=== PATIENT | female | born 1985 | race Caucasian/White ===

== ENCOUNTER 2016-06-09 07:59 | Inpatient (IN) | payer BC ==
[~2016-06-09] VITALS: Ht 162.6 cm; Wt 78.0 kg
[2016-06-09] VITALS (54 sets, daily range): BP systolic 92–143; BP diastolic 16–95; PULSE 59–138; RESP 17–19; TEMP 98.1–99
[2016-06-09] MEDS ORDERED: LIDOCAINE HCL 1% 50 ML VIAL I-DERMAL PRN (08:15)
[2016-06-09] MEDS ORDERED: LIDOCAINE HCL 1% 50 ML VIAL INFIL PRN (08:15)
[2016-06-09] MEDS ORDERED: MINERAL OIL 10 ML VIAL TOPICAL PRN (08:15)
[2016-06-09] MEDS ORDERED: CITRIC ACID-SODIUM CITRATE LIQ 30 ML UDC PO SCH (08:15)
--- NOTE | 2016-06-09 08:22 | HHI.HP ---
HPI Chief Complaint 40 weeks for labor induction Date Seen: Jun 09, 2016 Time Seen: 08:30 Travel History International Travel<30 Days: No Contact w/Intl Traveler<30Days: No Known Affected Area: No History of Present Illness HPI 40 weeks for labor induction Para: 0 : 1 Last Menstrual Period: Jun 09, 2016 History Past Medical History Narrative Medical none Medical History: Denies Significant Hx Obstetric History Obstetric History niurka Past Surgical History Narrative Surgical knee ACL Family History Family History: Negative Social History Alcohol Use: No Tobacco Use: No Substance Abuse: No Allergies-Medications (Allergen,Severity, Reaction): Uncoded Allergies: NKA (Allergy, Unknown, 12/21/02) Review of Systems Except as stated in HPI: all other systems reviewed are Neg Physical Exam Narrative GENERAL: Well-nourished, well-developed patient. SKIN: Warm and dry. HEAD: Normocephalic and atraumatic. EYES: No scleral icterus. No injection or drainage. ENT: No nasal drainage noted. Mucous membranes pink. Airway patent. NECK: Supple, trachea midline. No JVD. CARDIOVASCULAR: Regular rate and rhythm without murmurs, gallops, or rubs. RESPIRATORY: Breath sounds equal bilaterally. No accessory muscle use. BREASTS: Bilateral exam showed no masses , no retractions, no nipple discharge. ABDOMEN/GI: Abdomen soft, non-tender, bowel sounds present, no rebound, no guarding Gravid to 40 weeks size Fundal Height: [-] GENITOURINARY: External Genitalia: intact and normal in appearance BUS glands: [-] Cervix: [-] Dilatation: 2 Effacement: 70 Station: -2 Presentation: [-] Membranes: [intact or ruptured] Uterine Contractions: [-] FHT's: Category: 1 Baseline: [-] Reactive: [-] Variability: [-] Decels: [-] EXTREMITIES: No cyanosis or edema. BACK: Nontender without obvious deformity. No CVA tenderness. NEUROLOGICAL: Awake and alert. Motor and sensory grossly within normal limits. Five out of 5 muscle strength in all muscle groups. Normal speech. Data Data Vital Signs Reviewed: Yes Orders Admit To Inpatient (06/09/16 ) Code Status (06/09/16 08:15) Vital Signs (Adult) .Per protocol (06/09/16 08:15) ^ Heart (06/09/16 08:15) ^ Amnioinfusion (06/09/16 08:15) Urinary Catheter Management .ONCE (06/09/16 08:15) Lactated Ringer's 1000 Ml Inj (Lr 1000 M (06/09/16 08:15) Lactated Ringer's 1000 Ml Inj (Lr 1000 M (06/09/16 08:15) Sodium Chlorid 0.9% 500 Ml Inj (Ns 500 M (06/09/16 08:15) Sodium Chlor 0.9% 1000 Ml Inj (Ns 1000 M (06/09/16 08:35) Lidocaine 1% Inj (50 Ml) (Xylocaine 1% I (06/09/16 08:15) Citric Acid-Sodium Citrate Liq (Bicitra (06/09/16 08:15) Fentanyl Inj (Fentanyl Inj) (06/09/16 08:15) Fentanyl Inj (Fentanyl Inj) (06/09/16 08:15) Complete Blood Count With Diff (06/09/16 08:15) Hold Clot (06/09/16 08:15) Abo/Rh Blood Type (06/09/16 08:15) Urinalysis - C+S If Indicated (06/09/16 08:15) Resp Oxygen Non Rebreathe Mask (06/09/16 ) ^ Epidural / Intrathecal Infus (06/09/16 08:15) Oxytocin 30 Units-500ml Premix (Pitocin (06/09/16 08:15) Lidocaine 1% Inj (50 Ml) (Xylocaine 1% I (06/09/16 08:15) Light Mineral Oil (Muri-Lube Oil) (06/09/16 08:15) Inpatient Certification (06/09/16 ) Specimen To Be Collected PRN (06/09/16 08:15) ^ Non Stress Test (06/09/16 08:16) Response To Medication .Post New Med Administration, Reaction (06/09/16 08:16) ^ Discontinue Medication (06/09/16 08:16) Oxytocin 30 Units-500ml Premix (Pitocin (06/09/16 08:30) Assessment/Plan Problem List: (1) 40 weeks gestation of Assessment and Plan induction of labor patient aware of process Cristofer Zapata MD Jun 09, 2016 08:22
[2016-06-09] MEDS ORDERED: OXYTOCIN 30 UNITS-500ML PREMIX 500 ML IV SCH (08:30)
[2016-06-09] MEDS ORDERED: LACTATED RINGER'S 1000 ML INJ 1,000 ML IV PRN (09:00)
[2016-06-09] MEDS ORDERED: OXYTOCIN 30 UNITS-500ML PREMIX 500 ML IV ONE (09:00)
[2016-06-09] MEDS ORDERED: SODIUM CHLOR 0.9% 1000 ML INJ 1,000 ML IV PRN (09:00)
[2016-06-09] MEDS ORDERED: SODIUM CHLORID 0.9% 500 ML INJ 500 ML IV PRN (09:00)
[2016-06-09 09:04] LABS: BASOPHIL % 0.4 % (0.0-2.0); EOSINOPHIL % 0.4 % (0.0-4.0); HEMATOCRIT 42.2 % (35.0-46.0); HEMO FLAGS DIFF FINAL; LYMPHOCYTE # 1.5 TH/MM3 (1.0-4.8); MEAN CELL VOLUME 90.2 FL (80.0-100.0); MEAN CORPUSCULAR HEMOGLOBIN 30.3 PG (27.0-34.0); MEAN CORPUSCULAR HGB CONC 33.6 % (32.0-36.0); MONO % 8.1 % (0.0-8.0); NEUT % 73.1 % (16.0-70.0); PLATELET COUNT 246 TH/MM3 (150-450); RED BLOOD COUNT 4.68 MIL/MM3 (4.00-5.30); RED CELL DISTRIBUTION WIDTH 13.4 % (11.6-17.2); WHITE BLOOD COUNT 8.2 TH/MM3 (4.0-11.0)
[2016-06-09] MEDS: LACTATED RINGER'S 1000 ML INJ 1,000 ML IV SCH ×3 (09:20→18:41)
[2016-06-09 10:11] LABS: BACTERIA, URINE OCC /hpf; BLOOD, URINE NEG (NEG); COMMENT (UR) CULTURE INDICATED; CULTURE IF INDICATED CULTURE INDICATED; GLUCOSE,URINE NEG (NEG); KETONE, URINE NEG (NEG); NITRITE,URINE NEG (NEG); PH, URINE 7.5 (5.0-8.5); SQUAMOUS EPITHELIAL CELL URINE 6 /hpf (0-5); URINE COLOR LIGHT-YELLOW (YELLW/STRAW)
[2016-06-09] MEDS ORDERED: PREN29TA PO (11:20)
[2016-06-09] MEDS ORDERED: fentaNYL 2MCG-BUPIV 0.125% INJ 100 ML ONE (15:03)
[2016-06-09] MEDS ORDERED: DIPHTH/TETANUS/ACEL PERTUSSIS (BOOSTER) 0.5 ML VIAL/PFS IM ONE (16:00)
[2016-06-09] MEDS ORDERED: MEASLES, MUMPS, RUBELLA VACCINE 0.5 ML VIAL SQ ONE (16:00)
[2016-06-09] MEDS ORDERED: ePHEDrine/NS 25 MG/5 ML SYR IV PRN (16:45)
[2016-06-09] MEDS ORDERED: DO NOT ADMINISTER ANTICOAGULANTS XX PRN (16:45)
[2016-06-09] MEDS ORDERED: fentaNYL 2MCG-BUPIV 0.125% 100 ML EPIDURAL SCH (16:45)
[2016-06-09] MEDS ORDERED: NO SYSTEM NARCOTICS XX PRN (16:45)
[2016-06-09] MEDS ORDERED: BUPIVACAINE HCL PF 0.25% 10 ML VIAL ONE (18:32)
--- NOTE | 2016-06-09 21:40 | PD.OB.DELI ---
Delivery Date: Jun 09, 2016 Anesthesia: Epidural Episiotomy: Right mediolateral Vaginal Delivery: Normal, Spontaneous Presentation: Occiput anterior Nuchal Cord: None Delayed cord clamping (45 sec): Yes : Male, Single One Minute : 9 Five Minute : 9 Weight: 8# 3oz Care: Spontaneous crying Placenta: Spontaneous delivery, Intact, 3 vessel cord Laceration: Vaginal laceration, Perineal laceration, 3 deg, Involving anal sphincter Repair: Chromic running (2nd ), Vicryl interrupted (sphincter repair) Cristofer Zapata MD Jun 09, 2016 21:40
[2016-06-09] MEDS ORDERED: ONDANSETRON ODT 4 MG TAB PO PRN (21:45)
[2016-06-09] MEDS ORDERED: ZOLPIDEM TARTRATE 5 MG TAB PO PRN (21:45)
[2016-06-09] MEDS ORDERED: ALUMINUM/MAGNESIUM/SIMETH 30 ML CUP PO PRN (21:45)
[2016-06-09] MEDS ORDERED: SODIUM CHLORIDE 0.9% FLUSH 5 ML FLUSH IV PRN (21:45)
[2016-06-10] MEDS: WITCH HAZEL 50%/GLYCERIN 12.5% 40 PAD JAR TOPICAL PRN ×3 (01:12→22:02)
[2016-06-10] MEDS: BENZOCAINE 20% TOPICAL SPRAY 60 ML CAN TOPICAL PRN ×2 (01:13→22:01)
[2016-06-10] MEDS: IBUPROFEN 600 MG TAB PO PRN ×4 (01:13→22:02)
[2016-06-10] MEDS: DOCUSATE SODIUM 50 MG/SENNA 8.6 MG TAB PO PRN ×2 (07:50→19:46)
[2016-06-10] MEDS: ACETAMINOPHEN 325 MG TAB PO PRN ×4 (07:52→19:46)
--- NOTE | 2016-06-10 08:25 | HHI.OB ---
Subjective Post Day: 1 Remarks doing well Objective Vitals/I&O Vital Signs Date Time Temp Pulse Resp B/P Pulse Ox O2 Delivery O2 Flow Rate FiO2 06/09/16 20:15 63 105/66 06/09/16 20:00 70 93/52 06/09/16 19:57 18 06/09/16 19:46 76 94/57 06/09/16 19:31 18 06/09/16 19:30 70 103/65 06/09/16 19:15 67 110/67 06/09/16 19:00 77 107/60 06/09/16 18:56 98.6 18 06/09/16 18:45 19 06/09/16 18:45 73 102/61 06/09/16 18:43 66 103/60 06/09/16 18:30 68 116/73 06/09/16 18:17 99.0 06/09/16 18:15 64 126/72 06/09/16 18:15 18 06/09/16 18:04 88 125/73 06/09/16 18:02 138 110/16 06/09/16 17:46 67 129/79 06/09/16 17:45 18 06/09/16 17:30 70 115/95 06/09/16 17:15 19 06/09/16 17:05 68 122/76 06/09/16 17:00 65 118/72 06/09/16 16:40 17 06/09/16 16:40 64 111/72 06/09/16 16:35 66 109/62 06/09/16 16:30 63 110/70 06/09/16 16:27 63 103/63 06/09/16 16:26 61 92/49 06/09/16 16:21 73 100/75 06/09/16 16:15 18 06/09/16 16:15 62 125/70 06/09/16 16:11 64 119/70 06/09/16 16:05 61 115/74 06/09/16 16:00 60 118/74 06/09/16 15:55 67 118/74 06/09/16 15:50 69 122/81 06/09/16 15:47 64 121/78 06/09/16 15:45 62 126/77 06/09/16 15:45 19 06/09/16 15:40 68 129/74 06/09/16 15:37 70 143/75 06/09/16 15:35 72 06/09/16 15:32 70 130/84 06/09/16 15:15 98.1 19 06/09/16 13:45 66 125/78 06/09/16 13:44 18 06/09/16 12:45 18 06/09/16 12:43 65 107/67 06/09/16 11:45 17 06/09/16 11:34 67 118/67 06/09/16 10:15 17 06/09/16 10:00 71 111/77 06/09/16 09:20 70 06/09/16 09:15 76 06/09/16 09:10 71 06/09/16 08:30 17 06/09/16 08:30 98.3 Objective Remarks GENERAL: Well-nourished, well-developed patient. . ABDOMEN/GI: Abdomen soft, non-tender. Fundus: Firm, non-tender at umbilicus. GENITOURINARY: Light to moderate bleeding. EXTREMITIES: No cyanosis or edema, non-tender, without signs of DVT. Medications and IVs Current Medications Medications (Trade) Dose Ordered Sig/Colton Route Start Time Stop Time Status Last Admin (NS Flush) 2 ml BID IV 06/10/16 09:00 (NS Flush) 2 ml UNSCH PRN IV 06/09/16 21:45 (Tylenol) 650 mg Q4H PRN PO 06/09/16 21:45 06/10/16 07:52 (Motrin) 600 mg Q6H PRN PO 06/09/16 21:45 06/10/16 07:52 (Americaine 20% Top Spr) 1 spray Q4H PRN TOPICAL 06/09/16 21:45 06/10/16 01:13 (Tucks Pads) 1 applic QID PRN TOPICAL 06/09/16 21:45 06/10/16 01:12 (Whit-Colace) 2 tab Q12H PRN PO 06/09/16 21:45 06/10/16 07:50 (Ambien) 5 mg HS PRN PO 06/09/16 21:45 (Mag-Al Plus Susp Liq) 15 ml Q8H PRN PO 06/09/16 21:45 (Zofran Odt) 4 mg Q6H PRN PO 06/09/16 21:45 Assessment/Plan Problem List: (1) 40 weeks gestation of (2) Spontaneous vaginal delivery Assessment and Plan Discharge Planning [facility] Cristofer Zapata MD Jun 10, 2016 08:25
--- NOTE | 2016-06-10 08:27 | HHI.DCPOC ---
Discharge Care Plan Diagnosis: (1) Spontaneous vaginal delivery Report Symptoms to Your Doctor -Temperate above 100.5 degrees -Redness, of incision or excessive or foul smelling drainage -Unusual pain or calf pain -Increased vaginal bleeding -Painful or difficulty urinating -Feelings of extreme sadness or anxiety after 2 weeks Goals to Promote Your Health * To prevent worsening of your condition and complications * To maintain your health at the optimal level Directions to Meet Your Goals Take your medications as prescribed Follow your dietary instruction Follow activity as directed Ensure plenty of rest for recovery Drink fluids for hydration Keep your appointments as scheduled Take your immunizations and boosters as scheduled If your symptoms worsen call your PCP, if no PCP go to Urgent Care Center or Emergency Room Smoking is Dangerous to Your Health. Avoid second hand smoke Call the 24-hour crisis hotline for domestic abuse at Cristofer Zapata MD Jun 10, 2016 08:27
[2016-06-10] MEDS ORDERED: SODIUM CHLORIDE 0.9% FLUSH 5 ML FLUSH IV SCH (09:00)
[2016-06-10] MEDS ORDERED: INFLUENZA VIRUS VACCINE (QUADRIVALENT) 0.5 ML SYR IM ONE ×2 (10:00→15:15)
[2016-06-11] MEDS: IBUPROFEN 600 MG TAB PO PRN ×2 (05:08→11:25)
[2016-06-11] MEDS: ACETAMINOPHEN 325 MG TAB PO PRN ×3 (05:09→13:34)
[2016-06-11 08:00] VITALS: BP 101/69; PULSE 66; RESP 16; TEMP 97.6
[2016-06-11] MEDS: BENZOCAINE 20% TOPICAL SPRAY 60 ML CAN TOPICAL PRN (11:24)
[2016-06-11] MEDS: WITCH HAZEL 50%/GLYCERIN 12.5% 40 PAD JAR TOPICAL PRN (11:25)
[2016-06-11] MEDS ORDERED: PERC5TAB12 PO (12:34)
--- NOTE | 2016-06-11 12:36 | HHI.DS ---
Admission Date Jun 09, 2016 at 07:59 Discharge Date: Jun 11, 2016 Admitting Diagnosis Diagnosis: (1) Spontaneous vaginal delivery Diagnosis: Principal Delivery Date: Jun 09, 2016 Vaginal Delivery: Normal, Spontaneous : Male, Single Brief History 40 weeks for labor induction Hospital Course dc home PPD #2 Pt Condition on Discharge: Good Discharge Disposition: Discharge Home Discharge Instructions Diet Instructions: As Tolerated, No Restrictions Activities You Can Perform: Pelvic Rest Follow up Referrals: ARTIFICIAL INSEMINATION TECHNICIAN - 2 Weeks @ [facility] with Cristofer Zapata MD New Medications: Oxycodone-Acetaminophen (Percocet) 5-325 mg Tab 1-2 TAB PO Q4H PRN PAIN #20 Ref 0 TAB Continued Medications: Vit-Iron Carbonyl ( Plus Iron 29-1 mg) 1 Tab Tab 1 TAB PO DAILY Nutritional Supplement #30 Ref 0 TAB Cristofer Zapata MD Jun 11, 2016 12:36
--- NOTE | 2016-06-11 12:37 | HHI.OB ---
Subjective Post Day: 2 Remarks doing Well BM today and ready for dc home Objective Vitals/I&O Vital Signs Date Time Temp Pulse Resp B/P Pulse Ox O2 Delivery O2 Flow Rate FiO2 06/11/16 08:00 97.6 66 16 101/69 Objective Remarks GENERAL: Well-nourished, well-developed patient. . ABDOMEN/GI: Abdomen soft, non-tender. Fundus: Firm, non-tender at umbilicus. GENITOURINARY: Light to moderate bleeding. EXTREMITIES: No cyanosis or edema, non-tender, without signs of DVT. Medications and IVs Current Medications Medications (Trade) Dose Ordered Sig/Colton Route Start Time Stop Time Status Last Admin (NS Flush) 2 ml BID IV 06/10/16 09:00 (NS Flush) 2 ml UNSCH PRN IV 06/09/16 21:45 (Tylenol) 650 mg Q4H PRN PO 06/09/16 21:45 06/11/16 09:18 (Motrin) 600 mg Q6H PRN PO 06/09/16 21:45 06/11/16 11:25 (Americaine 20% Top Spr) 1 spray Q4H PRN TOPICAL 06/09/16 21:45 06/11/16 11:24 (Tucks Pads) 1 applic QID PRN TOPICAL 06/09/16 21:45 06/11/16 11:25 (Whit-Colace) 2 tab Q12H PRN PO 06/09/16 21:45 06/10/16 19:46 (Ambien) 5 mg HS PRN PO 06/09/16 21:45 (Mag-Al Plus Susp Liq) 15 ml Q8H PRN PO 06/09/16 21:45 (Zofran Odt) 4 mg Q6H PRN PO 06/09/16 21:45 Assessment/Plan Problem List: (1) 40 weeks gestation of (2) Spontaneous vaginal delivery Assessment and Plan Discharge Planning dc home Cristofer Zapata MD Jun 11, 2016 12:37
[2016-06-11] MEDS: DOCUSATE SODIUM 50 MG/SENNA 8.6 MG TAB PO PRN (13:34)
== END 2016-06-11 15:17 | disposition home or self-care (01) | DRG 775 ==
LOC: H2EA 07:59 → H1EA 06-10 00:27
PROVIDERS: ADMIT Obstetrics & Gynecology; ATTEND Obstetrics & Gynecology
PROC: 0DQR0ZZ Repair Anal Sphincter, Open Approach (ICD-10-PCS; principal; 2016-06-09)
PROC: 10E0XZZ Delivery of Products of Conception, External Approach (ICD-10-PCS; 2016-06-09)
PROC: 0W8NXZZ Division of Female Perineum, External Approach (ICD-10-PCS; 2016-06-09)
PROC: 00HU33Z Insertion of Infusion Device into Spinal Canal, Percutaneous Approach (ICD-10-PCS; 2016-06-09)
PROC: 3E0R3CZ (ICD-10-PCS; 2016-06-09)
DX: O48.0 Post-term pregnancy (principal); O70.20 Third degree perineal laceration during delivery, unspecified; Z37.0 Single live birth; Z3A.40 40 weeks gestation of pregnancy; Z23 Encounter for immunization
CPT/HCPCS: 59025; 81001; 85025; 86900; 86901; 87086; 90686; 90715; J2590; J7120; Q2038

== ENCOUNTER 2018-03-28 07:46 | Inpatient (IN) ==
[2018-03-28] MEDS ORDERED: Naloxone Inj 0.4 MG/ML Vial IV.PUSH PRN ×2 (08:03→14:01)
[2018-03-28] MEDS ORDERED: Sodium Chlor 0.9% Inj 500 ML IV.SIG PRN (08:03)
[2018-03-28] MEDS ORDERED: Sod Chloride 0.9% Inj 1,000 ML IV.CONT PRN (08:03)
[2018-03-28] MEDS ORDERED: Oxytocin 30 Units/500ml Premix 30 UNITS/500 ML BAG IV.SIG ONE (08:03)
[2018-03-28] MEDS ORDERED: fentaNYL Citrate Inj 100 MCG/2 ML Ampul IV.PUSH PRN ×2 (08:03)
[2018-03-28] MEDS ORDERED: Oxytocin 30 Units/500ml Premix 30 UNITS/500 ML BAG IV.SIG PRN (08:06)
--- NOTE | 2018-03-28 08:10 | P.HPOB ---
History of Present Illness Service: for induction at 40 weeks Primary Care Physician: No Primary Care Physician Weeks Gestation:: 40 Para: 1 : 2 - Inpatient Certification I certify that the inpatient services were ordered in accordance with Medicare regulations governing the order. This includes certification that hospital inpatient services are reasonable and necessary and in the case of services not specified as inpatient-only under 42 CFR 419.22(n), that they are appropriately provided as inpatient services in accordance to with the 2-midnight benchmark under 43 CFR 412.3(e) Estimated Total Length of Stay (Days): 2 Plans for Post Hospital Care: Home Review of Systems All other systems reviewed negative except as stated in HPI PMFSH - Medical / Surgical Hx Neg / Unobtainable Medical Problems Denied: Yes Surgical History: No Previous Surgery - Social History I have reviewed the patient's Social History: No - Tobacco History Second Hand Smoke Exposure: No Tobacco Use In Past 30 Days: No Smoking Status: Never smoker - Travel History Recent Travel in the [place] Within the Last 8 Weeks: No Recent Travel Out of the Country Within the Last 8 Weeks: No Medications and Allergies Active Medications: Active Medications Citric Acid/Sodium Citrate (Sodium Citrate/Citric Acid Liq) 30 ml PO ENVIRONMENTAL ANALYST [facility]IN[facility] Stop: 04/01/18 08:14 Fentanyl Citrate (Fentanyl Inj) 50 mcg IV.PUSH Q1H PRN PRN Reason: Pain Scale 3 - 5 Fentanyl Citrate (Fentanyl Inj) 100 mcg IV.PUSH Q1H PRN PRN Reason: PAIN SCALE 6 TO 10 Lactated Ringer's (Lr 1000 Ml Inj) 1,000 mls @ 125 mls/hr IV.CONT .Q8H [facility] Lactated Ringer's (Lr 1000 Ml Inj) 1,000 mls @ 3,000 mls/hr IV.SIG UNSCH PRN PRN Reason: compromise or epidural Sodium Chloride (Ns Inj) 500 mls @ 1,000 mls/hr IV.SIG UNSCH PRN PRN Reason: SEE LABEL COMMENTS Sodium Chloride (Ns Inj) 1,000 mls @ 100 mls/hr IV.CONT .Q10H PRN PRN Reason: SEE LABEL COMMENTS Oxytocin (Pitocin 30 Units/Ns 500 Ml Premix) 30 units in 500 mls @ 999 mls/hr IV.SIG BOLUS ONE Stop: 03/28/18 08:33 Oxytocin (Pitocin 30 Units/Ns 500 Ml Premix) 30 units in 500 mls @ 2 mls/hr IV.SIG TITRATE PRN; Protocol PRN Reason: For induction of labor Lidocaine HCl (Xylocaine 1% Inj) 0.1 ml I-DERMAL PRN PRN PRN Reason: For IV start Stop: 03/31/18 08:02 Lidocaine HCl (Xylocaine 1% Inj) 10 ml INFILTRATN PRN PRN PRN Reason: For episiotomy repair Stop: 03/30/18 08:02 Mineral Oil (Muri-Lube Oil) 10 ml TOPICAL PRN PRN PRN Reason: PRN perineal massage Naloxone HCl (Narcan Inj) 0.1 mg IV.PUSH Q2M PRN PRN Reason: for opiate reversal Allergies Allergy/AdvReac Type Severity Reaction Status Date / Time No Known Allergies Allergy Verified 03/28/18 08:00 Home Medications Medication Instructions Recorded Confirmed Type vit,[id number] 1 tab PO DAILY 03/28/18 03/28/18 History [PNV 29-1] Exam Vital signs: Intake & Output 03/27/18 03/28/18 03/28/18 18:59 06:59 18:59 Weight 76.657 kg Other: Weight On Admission 76.657 kg - Constitutional no acute distress - Routine Neck Exam Present: full ROM - Routine Respiratory Exam Present: CTA bilaterally - Routine Cardiovascular Exam Present: RRR - Routine Abdominal Exam Present: soft, normoactive bowel sounds - Routine Skin Exam Present: intact - Routine Neurological Exam Present: oriented X3 (cervix 3 cm dilated) Results - Labs Group B Strep: Negative Caprini VTE Risk Assessment Caprini VTE Risk Assessment: No/Low Risk (score <= 1) Caprini Risk Assessment Model: Point Value = 1 Point Value = 2 Point Value = 3 Point Value = 5 Age 41-60 Minor surgery BMI > 25 kg/m2 Swollen legs Varicose veins or History of unexplained or recurrent spontaneous Oral contraceptives or hormone replacement Sepsis (< 1 month) Serious lung disease, including pneumonia (< 1 month) Abnormal pulmonary function Acute myocardial infarction Congestive heart failure (< 1 month) History of inflammatory bowel disease Medical patient at bed rest Age 61-74 Arthroscopic surgery Major open surgery (> 45 min) Laparoscopic surgery (> 45 min) Malignancy Confined to bed (> 72 hours) Immobilizing plaster cast Central venous access Age >= 75 History of VTE Family history of VTE Factor V Leiden Prothrombin [id number] Lupus anticoagulant Anticardiolipin antibodies Elevated serum homocysteine Heparin-induced thrombocytopenia Other congenital or acquired thrombophilia Stroke (< 1 month) Elective arthroplasty Hip, pelvis, or leg fracture Acute spinal cord injury (< 1 month) Prophylaxis Regimen: Total Risk Factor Score Risk Level Prophylaxis Regimen 0-1 Low Early ambulation 2 Moderate Order ONE of the following: *Sequential Compression Device (SCD) *Heparin 5000 units SQ BID 3-4 Higher Order ONE of the following medications: *Heparin 5000 units SQ TID *Enoxaparin/Lovenox 40 mg SQ daily (WT < 150 kg, CrCl > 30 mL/min) *Enoxaparin/Lovenox 30 mg SQ daily (WT < 150 kg, CrCl > 10-29 mL/min) *Enoxaparin/Lovenox 30 mg SQ BID (WT < 150 kg, CrCl > 30 mL/min) AND/OR *Sequential Compression Device (SCD) 5 or more Highest Order ONE of the following medications: *Heparin 5000 units SQ TID (Preferred with Epidurals) *Enoxaparin/Lovenox 40 mg SQ daily (WT < 150 kg, CrCl > 30 mL/min) *Enoxaparin/Lovenox 30 mg SQ daily (WT < 150 kg, CrCl > 10-29 mL/min) *Enoxaparin/Lovenox 30 mg SQ BID (WT < 150 kg, CrCl > 30 mL/min) AND *Sequential Compression Device (SCD) Assessment and Plan - Diagnosis (1) 40 weeks gestation of Code(s): Z3A.40 - 40 weeks gestation of Status: Acute - Plan arom pit
[2018-03-28] MEDS ORDERED: Citric Acid/Sodium Citrate Liq 30 ML UDC PO SCH (08:15)
[2018-03-28 08:23] VITALS: RESP 18
[2018-03-28 09:01] LABS: Baso % (Auto) 0.3 % (0.0-2.0); Eos % (Auto) 0.6 % (0.0-4.0); Hematocrit 40.6 % (35.0-46.0); Hemoglobin 13.7 gm/dL (11.6-15.3); Lymph # (Auto) 1.5 th/mm3 (1.0-4.8); Lymph % (Auto) 18.7 % (9.0-44.0); Mean Corpuscular HGB Conc 33.7 % (32.0-36.0); Mean Corpuscular Hemoglobin 30.3 pg (27.0-34.0); Mean Corpuscular Volume 89.9 fL (80.0-100.0); Mean Platelet Volume 7.7 fL (7.0-11.0); Mono # (Auto) 0.5 th/mm3 (0.0-0.9); Mono % (Auto) 6.6 % (0.0-8.0); Neut % (Auto) 73.8 % (16.0-70.0); Platelet Count 250 th/mm3 (150-450); Red Blood Count 4.52 mil/mm3 (4.00-5.30); Red Cell Distribution Width 13.8 % (11.6-17.2); White Blood Count 8.1 th/mm3 (4.0-11.0)
[2018-03-28 10:20] LABS: Amphetamine Urine With Conf Neg (Neg); Benzodiazepine Urine With Conf Neg (Neg); Cocaine Urine With Conf Neg (Neg); Opiates Urine With Conf Neg (Neg)
[2018-03-28 10:21] LABS: Bacteria,Urine Rare /hpf; Bilirubin,Urine Negative (Negative); Cannabinoid Urine With Conf Neg (Neg); Clarity,Urine Clear (Clear); Color,Urine Straw (Yellw/Straw); Glucose,Urine (UA) Negative (Negative); Leukocyte Esterase,Urine Trace (Negative); Mucus,Urine Few /lpf (Occasional); Nitrite,Urine Negative (Negative); Specific Gravity,Urine 1.005 (1.002-1.035); Squamous Epithelial Cell,Urine 1 /hpf (0-5)
[2018-03-28] MEDS ORDERED: fentaNYL 2MCG-Bupiv 0.125% Epi 150 ML EPIDURAL ONE (10:22)
[2018-03-28] MEDS ORDERED: fentaNYL 2MCG-Bupiv 0.125% Epi 150 ML EPIDURAL PRN (12:37)
[2018-03-28] MEDS ORDERED: fentaNYL Citrate Inj 100 MCG/2 ML Ampul EPIDURAL ONE (12:37)
[2018-03-28] MEDS ORDERED: Bisacodyl 10 MG Supp RECTAL PRN (14:01)
[2018-03-28] MEDS ORDERED: Benzocaine 20% Top Spray 60 ML Can TOPICAL PRN (14:01)
[2018-03-28] MEDS ORDERED: Zolpidem Tartrate 5 MG Tablet PO PRN (14:01)
[2018-03-28] MEDS ORDERED: Oxytocin 30 Units/500ml Premix 30 UNITS/500 ML BAG IV.CONT PRN (14:01)
[2018-03-28] MEDS ORDERED: Witch Hazel 50%/Glyderin 12.5% 40 Pad Jar RECTAL PRN (14:01)
[2018-03-28] MEDS ORDERED: Acetaminophen 325 MG Tablet PO PRN (14:01)
--- NOTE | 2018-03-28 14:01 | P.OBDELI ---
Weeks Gestation: 40 Patient Started Active Labor: Yes Active Labor Start Date: 03/28/18 Active Labor Start Time: 09:00 Artificial Rupture of Membrane: Yes Artificial ROM Date: 03/28/18 Anesthesia: Epidural Episiotomy: none Vaginal Delivery: Normal, Spontaneous Presentation: Occiput anterior Nuchal Cord: x1 Delayed Cord Clamping (45 sec): Yes Placenta: Spontaneous delivery, Intact, 3 vessel cord Laceration: 2 deg Estimated blood loss (mL): 250 Infant: Female ( 9/9)
[2018-03-28] MEDS ORDERED: Diphtheria/Tetanus/Pertussis Vaccine Inj 0.5 ML Syringe IM ONE (16:00)
[2018-03-28] MEDS ORDERED: Measles/Mumps/Rubella Vaccine Inj 0.5 ML Vial SQ ONE (16:00)
[2018-03-28] MEDS: Senna/Docusate Sodium 8.6/50 MG Tablet PO SCH (21:51)
[2018-03-29] MEDS: Senna/Docusate Sodium 8.6/50 MG Tablet PO SCH (08:16)
[2018-03-29 09:08] VITALS: BP 113/68; PULSE 74; TEMP 97.8
[2018-03-29] MEDS ORDERED: Influenza (Quadrivalent) Vaccine 0.5 ML Syringe IM ONE (09:45)
--- NOTE | 2018-03-29 10:55 | P.PNOB ---
Subjective Post day: 1 Interval history: doing well Objective Vital Signs/I&O: Vital Signs 03/28/18 11:01 03/28/18 11:10 03/28/18 11:20 Temperature Pulse Rate 83 82 86 Respiratory Rate Blood Pressure 134/73 130/76 122/73 03/28/18 11:26 03/28/18 11:28 03/28/18 12:00 Temperature Pulse Rate 77 82 67 Respiratory Rate Blood Pressure 119/79 119/74 125/63 03/28/18 12:15 03/28/18 12:30 03/28/18 13:04 Temperature Pulse Rate 75 72 70 Respiratory Rate Blood Pressure 116/64 116/70 109/75 03/28/18 13:08 03/28/18 13:15 03/28/18 13:30 Temperature 98.5 F Pulse Rate 76 78 Respiratory Rate 18 Blood Pressure 106/59 L 124/71 03/28/18 13:45 03/28/18 14:00 03/28/18 14:16 Temperature Pulse Rate 91 H 86 77 Respiratory Rate Blood Pressure 119/64 113/68 90/71 L 03/28/18 14:33 03/28/18 14:45 03/28/18 16:00 Temperature 98.7 F Pulse Rate 73 73 86 Respiratory Rate 18 Blood Pressure 110/67 106/57 L 122/71 03/28/18 20:05 03/29/18 07:35 Temperature 98.1 F 97.8 F Pulse Rate 75 74 Respiratory Rate 18 18 Blood Pressure 105/64 113/68 Intake & Output 03/28/18 03/29/18 03/29/18 18:59 06:59 18:59 Weight 76.657 kg Other: Weight On Admission 76.657 kg Result Diagrams: 03/28/18 08:15 Objective Remarks: GENERAL: Well-nourished, well-developed patient. ABDOMEN/GI: Abdomen soft, non-tender. Fundus: Firm, non-tender at umbilicus. GENITOURINARY: Light to moderate bleeding. EXTREMITIES: No cyanosis or edema, non-tender, without signs of DVT. Medications and IVs: Active Medications Acetaminophen (Tylenol) 650 mg PO Q4H PRN PRN Reason: PAIN SCALE 1 TO 2 Al Hydroxide/Mg Hydroxide (Milk Of Magnesia Liq) 30 ml PO Q12H PRN PRN Reason: Mild Constipation Benzocaine (Americaine 20% Top Van) 1 spray TOPICAL Q4H PRN PRN Reason: For Perineum Discomfort Last Admin: 03/29/18 08:16 Dose: 1 spray Bisacodyl (Dulcolax Supp) 10 mg RECTAL DAILY PRN PRN Reason: SEVERE CONSITIPATION Oxytocin (Pitocin 30 Units/Ns 500 Ml Premix) 30 units in 500 mls @ 2 mls/hr IV.SIG TITRATE PRN; Protocol PRN Reason: For induction of labor Last Admin: 03/28/18 08:54 Dose: 2 milliunit/min, 2 mls/hr Oxytocin (Pitocin 30 Units/Ns 500 Ml Premix) 30 units in 500 mls @ 100 mls/hr IV.CONT UNSCH PRN PRN Reason: Heavy bleeding Ibuprofen (Motrin) 800 mg PO Q8H PRN PRN Reason: For Cramping Last Admin: 03/29/18 08:15 Dose: 800 mg Lactulose (Lactulose Liq) 30 ml PO DAILY PRN PRN Reason: SEVERE CONSITIPATION Miscellaneous Information (Misc Information) 1 each OTHER UNSCH PRN PRN Reason: SEE LABEL COMMENTS Stop: 03/29/18 12:37 Miscellaneous Information (Misc Information) 1 each OTHER UNSCH PRN PRN Reason: SEE LABEL COMMENTS Stop: 03/29/18 12:37 Naloxone HCl (Narcan Inj) 0.1 mg IV.PUSH Q2M PRN PRN Reason: for opiate reversal Ondansetron HCl (Zofran Odt) 4 mg PO Q6H PRN PRN Reason: NAUSEA OR VOMITING Oxycodone/Acetaminophen (Percocet 5/325 Mg) 2 tab PO Q4H PRN PRN Reason: PAIN SCALE 6 TO 10 Oxycodone/Acetaminophen (Percocet 5/325 Mg) 1 tab PO Q4H PRN PRN Reason: PAIN SCALE 3 TO 5 Senna/Docusate Sodium (Whit-Colace) 1 tab PO BID [facility] Last Admin: 03/29/18 08:16 Dose: 1 tab Sennosides (Senokot) 17.2 mg PO Q12H PRN PRN Reason: Moderate Constipation Sodium Chloride (Ns Flush) 2 ml IV.FLUSH PRN PRN PRN Reason: FLUSH AFTER USING IV ACCESS Sodium Chloride (Ns Flush) 2 ml IV.FLUSH BID [facility] Last Admin: 03/29/18 09:16 Dose: Not Given Witch Anila/Glycerin (Tucks Pads) 1 applicatio RECTAL QID PRN PRN Reason: HEMORRHOIDS Last Admin: 03/29/18 08:16 Dose: 1 applicatio Zolpidem Tartrate (Ambien) 5 mg PO HS PRN PRN Reason: SLEEP Assessment and Plan - Diagnosis (1) 40 weeks gestation of Code(s): Z3A.40 - 40 weeks gestation of Status: Acute - Plan arom pit
--- NOTE | 2018-03-29 15:31 | P.DS ---
Date of admission: 03/28/18 07:46 Primary care physician: Britt Primary Care Physician Brief History from admission: patient came for induction and DC home PPD #1 DS: Diagnosis - Discharge Diagnosis (1) 40 weeks gestation of Status: Acute DS: Summary Hospital Course: patient came and had and DC home PPD #1 - Time Spent with Patient Total time spent providing and/or coordinating discharge services: Less than 30 minutes Exam Vital signs: Vital Signs 03/28/18 16:00 03/28/18 20:05 03/29/18 07:35 Temperature 98.7 F 98.1 F 97.8 F Pulse Rate 86 75 74 Respiratory Rate 18 Blood Pressure 122/71 105/64 113/68 Intake & Output 03/28/18 03/29/18 03/29/18 18:59 06:59 18:59 Weight 76.657 kg Other: Weight On Admission 76.657 kg - Constitutional no acute distress Results Procedures completed during hospitalization: Discharge Plan - Discharge Disposition Patient Disposition: Discharge Home - Discharge Condition Condition: Good - Discharge Order Discharge Orders: Discharge Order (Routine); Ordered 03/29/18 Ordered By: Cristofer Zapata - Physicians Team Primary Care Provider: Primary Care Britt Dickinson Attending Provider: Cristofer Zapata - Rxs /Orders / Referrals /Forms Prescriptions: Continue vit,[id number] [PNV 29-1] 29 mg iron- 1 mg Tablet 1 tab PO DAILY Referrals: Cristofer Zapata MD [Physician] - See Instructions (2 week) Primary Care Britt Dickinson [Primary Care Provider] - See Instructions - Discharge Instructions Patient Printed Instructions: Preeclampsia and Eclampsia After Delivery (GEN) Additional Instructions: mother baby packet given. - Post Discharge Care Plan Care Plan Goals: Discharge Plan of Care After Vaginal Delivery Congratulations on your new baby! We want your recovery to be tovar and trouble free. After having a baby, your body may be very tired. It can take time to recover from a vaginal delivery. You may stay in the hospital or center from 1 to 4 days. In some cases, you may be able to go home the same day. Changing Expectations for Parents: Most new mothers experience some form of the baby blues. These mood swings are caused by hormonal shifts in your body. Stress due to the recent changes in your life and lack of sleep also have an effect. The baby blues may last a few days or up to 2 weeks. Balancing the Blues: Recognize your need to talk, to feel protected, to have private time. Allow yourself to cry, to sit, to think. Ask for help when you need it, and accept help when its offered. Knowing your needs is not a weakness. Share your thoughts with your partner. Or waste picker the phone and call a friend, your mother , a sister, or an aunt. Rest, eat right, and get some light exercise. The mind feels best when the body feels good. Diet and Activity: * Eat fresh fruit and vegetables, whole grains, and bran cereals. * Drink plenty of water. * Dont strain to have a bowel movement. * Follow activity as directed. * After you deliver your baby, you can start to exercise when you feel ready. Let your body be your guide. If you are : * Ask before you take any medicine. * If you leak milk, it will help to nurse right before the activity. * Talk to your healthcare provider about alcohol, if you choose to drink. * When youre sick, check with your physician if the medications would impact the breast feeding * Ask your physician before taking any prescription or [id number] medicines, herbs, or supplements. * Ask your physician what to use for prevention while you are nursing. If you have Stitches: * Gently wipe from front to back after you urinate or have a bowel movement.. * After wiping, spray warm water on the area. Or you can have a sitz bath. This means sitting in a tub with a few inches of water in it. * Pat the area dry or use a hairdryer on a cool setting. * Do not use soap or any solution except water on the area. * You can take a shower unless told not to. * Change sanitary pads at least every 2 to 4 hours.. * Place cold or heat packs on the area as directed by your physician or nurses. Keep a thin towel between the pack and your skin. When to call your doctor: Call your doctor right away if you have: Fever of 100.5F (38C) or higher, or as directed by your doctor. Heavy or gushing bleeding from the vagina. Discharge that has a bad odor. No bowel movement within one week after the of your baby. Pain or urgency with urination, or inability to urinate. Severe pain in the belly or increased pain near your stitches. Signs of Depression include: You dont want to be with the baby. Your symptoms are not getting better, and youre getting more upset. You have no interest in eating or are not able to sleep. You think you may harm yourself or the baby. The Depression After Delivery hotline (265-357-4022) may also be helpful. If your symptoms worsen call your OB Physician, or go to an Urgent Care Center or Emergency Room Smoking is Dangerous to your health. Avoid second hand smoke Call the 24-hour crisis hotline for domestic abuse at Follow-Up: Do Not miss your follow-up appointment. Increasing symptoms of depression. Keep up with all your appointments and yearly check ups. Call 911: Call 911 right away if you have: Chest pain. Shortness of breath. Any pain or tenderness in your calf. Severe depression or Thoughts of harm to self and others.
== END 2018-03-29 16:20 | disposition home or self-care (01) ==
LOC: H2E 07:46 → H1EA 15:46
PROVIDERS: ADMIT Obstetrics & Gynecology; ATTEND Obstetrics & Gynecology